=== PATIENT | female | born 1945 | race Two or more races ===

== ENCOUNTER 2019-11-01 10:57 | Emergency (ER) | payer OTHER ==
[~2019-11-01] VITALS: Ht 157.5 cm; Wt 76.7 kg
[~2019-11-01 10:57] MED LIST: CARVEDILOL25 MG; CLEOCIN HCL300 MG PO; COREG CR10 MG PO; DOLOGEN CAPLET1 TAB PO; HYZAAR 100-121 UDTAB PO; ISOSORBIDE DIN2.5 MG SL; ISOSORBIDE DINI30 MG; LIMBREL 250 MG250 MG; MOTRIN800 MG PO; NORVASC5 MG PO; NOVOLIN 70/30 110 ML SQ; NOVOLOG100 U/ML SQ; PLAVIX75 MG PO; SIMVASTATIN80 MG; SYNTHROID50 MCG; ULTRACET PO; ZANTAC150 MG; ZOCOR5 MG PO
== END 2019-11-01 12:05 | disposition home or self-care (01) ==
LOC: ER 10:57
DX: M79.622 Pain in left upper arm (principal)